=== PATIENT | female | born 1940 | race Caucasian/White ===

== ENCOUNTER 2021-04-03 19:52 | Emergency (ER) | payer MEDICARE, BC ==
[~2021-04-03] VITALS: Ht 167.6 cm; Wt 81.8 kg
[2021-04-03 23:47] LABS: BASO % 0.1 % (0.0-2.0); EOS # 0.2 K/mm3 (0.0-0.7); EOS % 2.7 % (0.0-4.0); GRAN # 4.3 K/mm3 (1.4-6.5); GRAN % 61.5 % (42.2-75.2); LYMPH # 1.8 K/mm3 (1.2-3.4); MEAN CELL VOLUME 79 fl (80.0-100.0); MEAN CORPUSCULAR HEMOGLOBIN 27 pg (27-31); MEAN CORPUSCULAR HGB CONC 34 g/dl (33.0-37.0); MEAN PLATELET VOLUME 12.3 fl (7.4-10.4); MONO # 0.7 K/mm3 (0.1-0.6); MONO % 10.3 % (1.7-9.3); PLATELET COUNT 207 K/mm3 (130-400); REDCELL DISTRIBUTION WIDTH-CV 12.7 % (11.5-14.5)
[2021-04-03 23:50] LABS: HEMATOCRIT 29.3 % (37.0-47.0)
[2021-04-04 00:14] LABS: BILIRUBIN,TOTAL 0.4 mg/dL (0.2-1.2); CALCIUM 8.8 mg/dL (8.4-10.2); CREATININE, serum 1.01 mg/dL (0.57-1.11); POTASSIUM 3.3 mmol/L (3.5-4.5); TOTAL PROTEIN 6.5 gm/dL (6.2-8.1)
[2021-04-04 00:19] LABS: TROPONIN-I 0.018 ng/mL (0.00-0.033)
[2021-04-04] MEDS ORDERED: ZITHROMAX Z PA250 MG PO (01:10)
[2021-04-04 02:08] VITALS: BP 134/66; PULSE 71; TEMP 97.4
== END 2021-04-04 02:08 | disposition home or self-care (01) ==
LOC: COL.ER 19:52
PROVIDERS: Physician Assistant
DX: J18.9 Pneumonia, unspecified organism (principal); R60.0 Localized edema; E87.6 Hypokalemia; E87.1 Hypo-osmolality and hyponatremia; H10.9 Unspecified conjunctivitis; I12.9 Hypertensive chronic kidney disease with stage 1 through stage 4 chronic kidney disease, or unspecified chronic kidney disease; N18.9 Chronic kidney disease, unspecified; E11.22 Type 2 diabetes mellitus with diabetic chronic kidney disease; Z20.822 Contact with and (suspected) exposure to COVID-19
CPT/HCPCS: J0696

== ENCOUNTER → 2021-08-07 | Outpatient (CLI) | payer MEDICARE, BC ==
[~2021-08-07] MED LIST: LASIX 20MG TABL20 MG PO; MITIGARE0.6 MG; PRINIVIL20 MG PO; ZITHROMAX Z PA250 MG PO; ZYLOPRIM 100MG100 MG PO
== END ==
LOC: COL.VAS 14:45
DX: I51.7 Cardiomegaly (principal); I34.0 Nonrheumatic mitral (valve) insufficiency; G45.9 Transient cerebral ischemic attack, unspecified

== ENCOUNTER 2021-08-19 12:33 | Inpatient (IN) | payer MEDICARE, BC ==
[~2021-08-19] VITALS: Ht 167.6 cm; Wt 84.1 kg
[~2021-08-19 12:33] MED LIST changes: -LASIX 20MG TABL20 MG PO; -MITIGARE0.6 MG; -PRINIVIL20 MG PO; -ZYLOPRIM 100MG100 MG PO
[2021-08-19 13:59] LABS: BASO % 0.1 % (0.0-2.0); EOS # 0.1 K/mm3 (0.0-0.7); EOS % 0.6 % (0.0-4.0); GRAN # 6.3 K/mm3 (1.4-6.5); GRAN % 75.1 % (42.2-75.2); LYMPH # 1.4 K/mm3 (1.2-3.4); LYMPH % 17.2 % (20.0-51.0); MEAN CELL VOLUME 85 fl (80.0-100.0); MEAN CORPUSCULAR HGB CONC 32 g/dl (33.0-37.0); MEAN PLATELET VOLUME 13.5 fl (7.4-10.4); MONO # 0.6 K/mm3 (0.1-0.6); MONO % 6.6 % (1.7-9.3); RED BLOOD COUNT 3.68 M/mm3 (4.10-5.30); REDCELL DISTRIBUTION WIDTH-CV 14.1 % (11.5-14.5)
[2021-08-19 14:18] LABS: HEMATOCRIT 31.1 % (37.0-47.0); HEMOGLOBIN 9.9 g/dl (12.5-16.0); MEAN CORPUSCULAR HEMOGLOBIN 27 pg (27-31)
[2021-08-19 14:19] LABS: PLATELET COUNT 258 K/mm3 (130-400)
[2021-08-19 14:40] LABS: ALBUMIN 2.7 gm/dL (3.4-4.8); BILIRUBIN,TOTAL 0.3 mg/dL (0.2-1.2); CALCIUM 8.4 mg/dL (8.4-10.2); CREATININE, serum 1.69 mg/dL (0.57-1.11); POTASSIUM 4.1 mmol/L (3.5-4.5); TOTAL PROTEIN 5.7 gm/dL (6.2-8.1)
[2021-08-19] MEDS ORDERED: MITIGARE0.6 MG (16:42)
[2021-08-19] MEDS ORDERED: LASIX 20MG TABL20 MG PO (16:42)
[2021-08-19] MEDS ORDERED: ZYLOPRIM 100MG100 MG PO (16:43)
[2021-08-19] MEDS ORDERED: PRINIVIL20 MG PO (16:44)
--- NOTE | 2021-08-19 17:40 | NUR ---
THE PATIENT ARRIVED TO THE MEDICAL FLOOR VIA WHEELCHAIR, SHE DID AMBULATE WITH CANE TO THE BATHROOM FOR BOWEL MOVEMENT AND URINATION. THE PATIENT STATES SHE WAS ONLY ABLE TO VOID "DROPS", AFTER BLADDER SCAN PROVIDER WAS NOTIFIED AND SANTILLAN CATHETER WAS ORDERED. THE PATIENT DENIES ANY DISCOMFORT AT THIS TIME, BUT REQUESTED WATER. THIS RN (AND STUDENT RN, SHARON) PROVIDED THE PATIENT WITH ICE CHIPS TO SATISFY HER. THE PATIENT IS STILL NPO DUE TO THE INABILITY TO SWALLOW. NO OTHER CONCERNS AT THIS TIME.
[2021-08-19 20:09] VITALS: BP 120/63; PULSE 81; TEMP 98.2
--- NOTE | 2021-08-19 22:26 | NUR ---
SPOKE WITH ALISA GRAHAM IN REGARDS TO PATIENT DIET, SANTILLAN CATHETER, AND FLOMAX. PATIENT TO HAVE WHAT SHE WANTS TONIGHT PO PER GLADYS SCHEDULED PARACENTESIS IN AM PATIENT HAVING NO DIFFICULTY WITH FLUIDS AT THIS TIME. PATIENT TO HAVE SPEECH AND ONCOLOGY CONSULT TOMORROW. NO PAIN NOTED AT THIS TIME VOIDING WITHOUT DIFFICULTY GLADYS STATED IF PATIENT ISN'T ABLE TO V0ID TO PLACE IN SANTILLAN CATHETER. NO S/S OF SOB OR DISTRESS NOTED. WILL CONTINUE TO MONITOR FOR ANY CHANGES THROUGHOUT SHIFT.
[2021-08-19 23:59] VITALS: BP 114/50; PULSE 88; TEMP 98.6
[2021-08-20] VITALS (9 sets, daily range): BP systolic 99–130; BP diastolic 45–58; PULSE 83–100; TEMP 98–98.5
--- NOTE | 2021-08-20 04:23 | NUR ---
PATIENT HAVING DIARRHEA THROUGHOUT THE NIGHT X2 EPISODES. PATIENT CONTINUES TO VOID WITHOUT DIFFICULTY. NO PAIN ONTE AMBULATING TO BATHROOM WITHOUT DIFFICULTY. PATIENT HASN'T BEEN ABLE TO SLEEP DUE TO FREQUENT BOWEL MOVEMENT. TOLERATING FLUIDS NO S/S OF ASPIRATION OR DIFFICULTY SWALLOWING AT THIS TIME.
[2021-08-20 06:11] LABS: BASO % 0.2 % (0.0-2.0); EOS # 0.1 K/mm3 (0.0-0.7); EOS % 1.8 % (0.0-4.0); GRAN # 3.7 K/mm3 (1.4-6.5); GRAN % 65.4 % (42.2-75.2); LYMPH # 1.3 K/mm3 (1.2-3.4); LYMPH % 23.6 % (20.0-51.0); MEAN CELL VOLUME 84 fl (80.0-100.0); MEAN CORPUSCULAR HGB CONC 32 g/dl (33.0-37.0); MEAN PLATELET VOLUME 12.8 fl (7.4-10.4); MONO # 0.5 K/mm3 (0.1-0.6); MONO % 8.6 % (1.7-9.3); PLATELET COUNT 208 K/mm3 (130-400); RED BLOOD COUNT 3.26 M/mm3 (4.10-5.30)
[2021-08-20 06:19] LABS: HEMATOCRIT 27.5 % (37.0-47.0); HEMOGLOBIN 8.7 g/dl (12.5-16.0); MEAN CORPUSCULAR HEMOGLOBIN 27 pg (27-31)
[2021-08-20 06:23] LABS: CALCIUM 8.1 mg/dL (8.4-10.2); CREATININE, serum 1.5 mg/dL (0.57-1.11); POTASSIUM 4.2 mmol/L (3.5-4.5)
--- NOTE | 2021-08-20 06:49 | NUR ---
THE PATIENT IS IN HER ROOM IN BED AT THIS TIME; ENDORSES DIARRHEA THROUGH THE NIGHT. DENIES ANY NAUSEA, VOMITTING OR PAIN. ABDOMEN IS STILL VERY DISTENDED. PLAN FOR PARACENTESIS TODAY. WILL HAVE A CONSENT SIGNED.
[2021-08-20 08:34] LABS: INR 1.2 (0.8-3.0); PROTHROMBIN TIME 13.3 SECONDS (9.7-12.8)
--- NOTE | 2021-08-20 08:54 | NUR ---
Met with Dr. Bar at bedside. He states that finding out what type of cancer is present will determine the treatment plan. He states the paracentesis and a possible biopsy would give some answers. Patient states that she would like to know what kind of cancer she has before making any decision because she was able to verbalize that Dr. Bar told her if it is GI in origin, her treatment options are limited. Patient also states that she doesn't "feel ready to leave this earth" so would like to be a full code at this time. Kisha also states that she has a living will. Notified care team and SW of discussion.
--- NOTE | 2021-08-20 09:57 | NUR ---
Patient was assisted to the bathroom, due to her experiencing runny stools, stool culture has been taken. Bedding changed/gown changed. Patient is now back in bed with fluid with potassium on.
--- NOTE | 2021-08-20 10:37 | NUR ---
Attended rounds with hospitalist team. Was reported that patient went down for a paracentesis but it was not performed d/t concerns from Dr. Dallas. Dr. Wall requested I clarify with Dr. Bar if a paracentesis or biopsy is appropriate. Call made to Dr. Bar who stated that a biopsy is fine, it won't help symptomatically but will still provide answers. Notified care team and current plan is for patient to undergo a CT guided biopsy.
[2021-08-20 10:47] LABS: CLOSTRIDIUM DIFF A/B NEG; CLOSTRIDIUM DIFF A/B INTERP No C.diff present
--- NOTE | 2021-08-20 11:08 | NUR ---
Housing And Residence Life Director met with patient to discuss discharge planning. Patient lives in [facility] with her , Franco (ph#[phone]) and sees Dr. Stapleton for primary care. Patient obtains medications from [facility] in [place] with no difficulties. Patient uses a cane for ambulation and is independent with ADLS. Patient thinks she may have done a DPOA-HC but is not entirely sure. Patient has a palliative consult placed. Per Mary Palliative RN patient wants to wait for results from some tests before deciding on plan of care. Discharge Plan: Unknown at this time
--- NOTE | 2021-08-20 14:32 | NUR ---
Specimen obtained and placed in formalin by Dr Dallas. Specimen labeled.
--- NOTE | 2021-08-20 15:41 | NUR ---
The patient has been NPO since her arrival to the floor, ST did see her and states that she would do just fine to order food. No other concerns at this time.
[2021-08-20 18:01] LABS: CARCINOEMBRYONIC ANTIGEN 1.3 ng/mL (0.0-5.0)
--- NOTE | 2021-08-20 19:11 | NUR ---
REPORT GIVEN TO JESSY GUAMAN
[2021-08-21 00:23] VITALS: BP 120/53; PULSE 85; TEMP 97.7
[2021-08-21 04:16] VITALS: BP 113/55; PULSE 99; TEMP 98.3
--- NOTE | 2021-08-21 06:00 | NUR ---
ASSESSMENT COMPLETE FOR THIS SHIFT. PT RESTING IN BED WATCHING THE NEWS. PT DENIED PAIN, PALPITATIONS, N,V, SOB OR DIZZINESS. PT COMPLAINED OF DIARRHEA. PT GIVEN IMODIUM. IMODIUM WAS EFFECTIVE. PT EXPRESSED NO OTHER NEEDS AT THIS TIME. CALL LIGHT WITHIN REACH.
[2021-08-21 06:03] LABS: BASO % 0.3 % (0.0-2.0); EOS # 0.2 K/mm3 (0.0-0.7); EOS % 2.6 % (0.0-4.0); GRAN # 4.6 K/mm3 (1.4-6.5); LYMPH # 1.5 K/mm3 (1.2-3.4); LYMPH % 21.9 % (20.0-51.0); MEAN CELL VOLUME 87 fl (80.0-100.0); MEAN CORPUSCULAR HGB CONC 31 g/dl (33.0-37.0); MONO # 0.6 K/mm3 (0.1-0.6); MONO % 8.6 % (1.7-9.3); PLATELET COUNT 255 K/mm3 (130-400); REDCELL DISTRIBUTION WIDTH-CV 14.2 % (11.5-14.5)
[2021-08-21 06:12] LABS: HEMATOCRIT 29.4 % (37.0-47.0); HEMOGLOBIN 9.1 g/dl (12.5-16.0); MEAN CORPUSCULAR HEMOGLOBIN 27 pg (27-31)
[2021-08-21 06:29] LABS: CALCIUM 8.3 mg/dL (8.4-10.2); CREATININE, serum 1.68 mg/dL (0.57-1.11); POTASSIUM 4.4 mmol/L (3.5-4.5)
[2021-08-21 07:09] VITALS: BP 114/54; PULSE 94; TEMP 98.1
--- NOTE | 2021-08-21 07:50 | NUR ---
PT STATES THAT SHE TAKES HEMP GUMMIES TO MANAGE HER ARTHRITIS PAIN AND SHE HAS NOT HAD THEM SINCE TUESDAY. PT STATES THAT THE PAIN HAS "REALLY INCREASED." PT ASKED IF SHE WOULD BE ABLE TO TAKE A PILL. SPOKE TO DAMION FOSTER ABOUT GUMMIES AND SHE STATES THAT IT WOULD BE OK IF PT TOOK THEM. CALLED PHARMACY TO SEND MEDICATION UP TO THEM TO GET A LABEL AND PHARMACIST STATES THAT PER HOSPITAL POLICY WE CAN NOT LABEL THAT MEDICATION AND ADMINISTER. PT WAS INFORMED AND VERBALIZIES UNDERSTANDING. PT STATES THAT SHE DOESNT HAVE ANYTHING ELSE FOR PAIN. I INFOMRED PT OF PRN PAIN MEDICATION ORDERS AND SHE STATES THAT SHE WOULD LIKE TO HAVE TYLENOL. TYLENOL WAS GIVEN TO PT.
--- NOTE | 2021-08-21 08:35 | NUR ---
PT SITTING UP IN CHAIR ON ROOM AIR. PT STATES THAT SHE IS HAVING A LOT OF ARTHRITIS PAIN. TYLENOL WAS GIVEN TO PT PER REQUEST. THERAPY AT BEDSIDE WORKING WITH PT. PT STATES NO NEEDS OR CONCERNS AT THIS TIME. "I AM JUST WAITING TO TALK TO THE DR AND SEE WHEN I CAN GET OUT OF HERE." PT STATES THAT SHE JUST WANTS TO EAT HER BREAKFAST NOW. CALL LIGHT IS WITHIN REACH.
[2021-08-21] MEDS ORDERED: IMODIUM A-D2 MG PO (09:36)
[2021-08-21] MEDS ORDERED: FLOMAX 0.40.4 MG/CAP PO (09:43)
[2021-08-21] MEDS ORDERED: ZOFRAN ODT4 MG PO (09:44)
--- NOTE | 2021-08-21 10:00 | NUR ---
sitting up in chair talking on phone, family at bedside
[2021-08-21 11:37] VITALS: BP 110/50; PULSE 94; TEMP 97.9
--- NOTE | 2021-08-21 13:10 | NUR ---
Electroplating Sales Representative attended clinical rounds with the team and patient will be discharged home today. CHERISE met with patient and her who is at bedside. Patient feels good about going home and is looking forward to it. CHERISE discussed Home Health services with patient who expressed interest. SW reviewed options that serve her area and patient would like referral sent to [facility]. Patient also expressed interest in private duty services and lives in [facility]. CHERISE encouraged patient to contact [facility] as they offer some private duty services. CHERISE then contacted [facility] and faxed referral/discharge orders. Discharge Plan: Home with [facility]
[2021-08-27] MEDS ORDERED: ZAROXOLYN5 MG PO (12:48)
[2021-08-27] MEDS ORDERED: PRESERVISION1 SGL PO (12:49)
[2021-08-27] MEDS ORDERED: FLOMAX 0.40.4 MG/CAP PO (12:49)
[2021-08-27] MEDS ORDERED: cbd gummy PO (12:50)
[2021-08-27] MEDS ORDERED: CALTRATE-600 W600 MG PO (12:50)
== END 2021-08-21 14:08 | disposition home health service (06) | DRG 755 ==
LOC: COL.ER 12:33 → MEDICAL 17:04
PROVIDERS: Emergency Medicine; Physician Assistant
PROC: 0WBH3ZX Excision of Retroperitoneum, Percutaneous Approach, Diagnostic (ICD-10-PCS; principal; 2021-08-19)
DX: C56.2 Malignant neoplasm of left ovary (principal); C78.5 Secondary malignant neoplasm of large intestine and rectum; C78.6 Secondary malignant neoplasm of retroperitoneum and peritoneum; R18.8 Other ascites; N17.9 Acute kidney failure, unspecified; E44.0 Moderate protein-calorie malnutrition; C78.7 Secondary malignant neoplasm of liver and intrahepatic bile duct; C80.1 Malignant (primary) neoplasm, unspecified; E11.9 Type 2 diabetes mellitus without complications; D64.9 Anemia, unspecified; N28.9 Disorder of kidney and ureter, unspecified; I10 Essential (primary) hypertension; R33.9 Retention of urine, unspecified; M10.9 Gout, unspecified; M19.90 Unspecified osteoarthritis, unspecified site; R13.10 Dysphagia, unspecified; R19.7 Diarrhea, unspecified; Z68.29 Body mass index [BMI] 29.0-29.9, adult; Z85.3 Personal history of malignant neoplasm of breast; Z90.710 Acquired absence of both cervix and uterus
CPT/HCPCS: 99223-AI; 99232-AI; 99239; J2765; J3480; J7030; Q9967

== ENCOUNTER → 2021-08-31 | Outpatient (CLI) | payer MEDICARE, BC ==
[~2021-08-31] VITALS: Ht 167.6 cm; Wt 87.4 kg
[~2021-08-31] MED LIST changes: +CALTRATE-600 W600 MG PO; +FLOMAX 0.40.4 MG/CAP PO; +IMODIUM A-D2 MG PO; +LASIX 20MG TABL20 MG PO; +MITIGARE0.6 MG; +PRESERVISION1 SGL PO; +PRINIVIL20 MG PO; +ZAROXOLYN5 MG PO; +ZOFRAN ODT4 MG PO; +ZYLOPRIM 100MG100 MG PO; +cbd gummy PO
[2021-08-31 11:49] VITALS: BP 145/67; PULSE 82; TEMP 98.6
[2021-08-31 12:55] VITALS: BP 116/60; PULSE 75
--- NOTE | 2021-08-31 13:05 | NUR ---
DR CARRIZALES REMOVED 2750 CC BLOOD TINGED FLUID.
== END ==
LOC: COL.RAD 11:36
DX: C80.1 Malignant (primary) neoplasm, unspecified (principal); C79.60 Secondary malignant neoplasm of unspecified ovary; R18.8 Other ascites
CPT/HCPCS: 19804